=== PATIENT | female | born 1940 | race Caucasian/White ===

== ENCOUNTER 2024-02-13 23:46 | Emergency (ER) | payer OTHER ==
[~2024-02-13] VITALS: Ht 154.9 cm; Wt 54.0 kg
[2024-02-14] MEDS: IV NS 0.9% 1,000 ML BAG IV ONE (00:10)
[2024-02-14 00:26] LABS: BASOPHILS % (AUTO) 0.2 % (0.0-2.0); EOSINOPHILS # (AUTO) 0.1 K/uL (0.0-0.7); EOSINOPHILS % (AUTO) 0.7 % (0.0-6.0); HEMATOCRIT 36 % (33-45); LYMPHOCYTES % (AUTO) 8.7 % (20.0-44.0); MEAN CORPUSCULAR HEMOGLOBIN 28 PG (26.0-33.0); MEAN CORPUSCULAR HGB CONC 34 g/dl (31.0-36.0); MEAN CORPUSCULAR VOLUME 82 fL (82-100); MONOCYTES % (AUTO) 8.5 % (2.0-12.0); NEUTROPHILS # (AUTO) 9.3 K/uL (1.8-8.9); NEUTROPHILS % (AUTO) 81.9 % (43.0-81.0); PLATELET COUNT (AUTO) 156 K/uL (150-450); RED BLOOD CELL COUNT(AUTO) 4.32 MIL/uL (4.0-5.2); RED CELL DISTRIBUTION WIDTH 15.6 % (11.5-15.0); WHITE BLOOD COUNT (AUTO) 11.4 K/uL (4.3-11.0)
[2024-02-14 00:42] LABS: ALANINE AMINOTRANSFERASE 18 U/L (12-78); ALKALINE PHOSPHATASE 204 U/L (46-116); ASPARTATE AMINOTRANSFERASE 16 U/L (15-37); BILIRUBIN,DIRECT 0.1 mg/dL (0.0-0.2); BILIRUBIN,TOTAL 0.5 mg/dL (0.2-1.0); CALCIUM, SERUM 8.7 mg/dL (8.5-10.1); CARBON DIOXIDE 22 mmol/L (21-32); CHLORIDE 109 mmol/L (98-107); CREATININE 0.7 mg/dL (0.6-1.3); GLUCOSE 116 mg/dL (74-106); LIPASE 50 U/L (16-77); POTASSIUM 4.1 mmol/L (3.5-5.1); SODIUM SERUM 140 mmol/L (136-145); TOTAL PROTEIN, SERUM 6.7 g/dL (6.4-8.2); UREA NITROGEN, BLOOD 15 mg/dL (7-18)
[2024-02-14] MEDS ORDERED: ONDANSETRON HCL/PF 4 MG/2 ML VIAL ONE (01:26)
[2024-02-14] MEDS ORDERED: MORPHINE SULFATE INJ 4 MG/ML DISP.SYRIN ONE (01:26)
[2024-02-14] MEDS: MORPHINE SULFATE INJ 2 MG/ML DISP.SYRIN IV ONE ×3 (01:40→05:24)
[2024-02-14] MEDS: ONDANSETRON HCL/PF - ER 4 MG/2 ML VIAL IV ONE (01:40)
[2024-02-14 01:49] LABS: APPEARANCE,URINE CLEAR (CLEAR); BILIRUBIN,URINE NEGATIVE (NEGATIVE); BLOOD, URINE NEGATIVE Ery/uL (NEGATIVE); COLOR,URINE YELLOW (YELLOW); KETONES,URINE NEGATIVE (NEGATIVE); LEUKOCYTE ESTERASE ,URINE NEGATIVE (NEGATIVE); NITRITE, URINE NEGATIVE (NEGATIVE); PROTEIN,URINE NEGATIVE (NEGATIVE); UGLUCOSE NEGATIVE (NEGATIVE); UROBILINOGEN,URINE 0.2 EU/dL (0.2)
[2024-02-14] MEDS ORDERED: IV NS 0.9% 250 ML IV ONE (02:01)
[2024-02-14] MEDS ORDERED: CT SWABBABLE VALVE TRANS SET 1 EA INFUS.SET MC ONE (02:01)
[2024-02-14] MEDS ORDERED: IOHEXOL-300 100 ML VIAL IV ONE (02:01)
[2024-02-14] MEDS ORDERED: MORPHINE SULFATE INJ 2 MG/ML DISP.SYRIN ONE (02:29)
[2024-02-14] MEDS ORDERED: FLUC150T PO (04:29)
[2024-02-14] MEDS ORDERED: LOPE2CAP40 PO (04:29)
[2024-02-14] MEDS ORDERED: DICY20TA11 PO (04:29)
[2024-02-14] MEDS ORDERED: ONDA4TAB11 PO (04:29)
[2024-02-14 05:31] VITALS: BP 119/81; TEMP 98.8; O2SAT 98
== END 2024-02-14 05:31 ==
LOC: ER 02-14 00:07
DX: B37.9 Candidiasis, unspecified (principal); K52.9 Noninfective gastroenteritis and colitis, unspecified; Z79.899 Other long term (current) drug therapy; Z20.822 Contact with and (suspected) exposure to COVID-19
CPT/HCPCS: 99285; 74177; 96374; 96361; 96375; 87426; 96376; 85025; 80048; 83605; 83690; 80076; 81003; 36415; J2270 ×3; J2405 ×2; J7030; J7050; Q9967